=== PATIENT | male | born 1975 | race Caucasian/White ===

== ENCOUNTER 2021-05-29 00:21 | Emergency (ER) | payer BC, OTHER ==
[~2021-05-29] VITALS: Ht 172.7 cm; Wt 93.8 kg
[2021-05-29 00:34] VITALS: BP 156/99
--- NOTE | 2021-05-29 00:44 | ED EENT ---
History of Present Illness General Chief Complaint: Oral/Throat Problems Stated Complaint: VOMITTING;FEVER Source: patient History of Present Illness Date Seen by Provider: May 29, 2021 Time Seen by Provider: 00:38 Initial Comments 45 yo male presenting with complaint of sore throat, cough productive of green colored sputum since Thursday. He has pain with swallowing. He denies having a fever but has not taken his temperature. He has felt warm but again has not actually taken his temperature. He does chew tobacco but does not smoke. He has no known ill contacts. He was having enough pain with swallowing that he was concerned about possible strep throat as well as he continued to cough up yellow to green-colored sputum. He has some stuffy nose and nasal congestion. He did not feel that he had possible Covid. He was not wanting to be swabbed for viral infection. He was having trouble sleeping due to cough and throat pain. Timing/Duration: abrupt, last week Severity: moderate Location: throat Prearrival Treatment: no prearrival treatment Modifying Factors: Worse With Coughing Associated Symptoms: No change in hearing; cough; No drooling, No ear drainage, No facial pain/swelling; fever (subjective), malaise, nasal congestion/drainage; No poor fluid intake, No poor solids intake, No sinus infection; sore throat; No tooth pain, No voice change Allergies and Home Medications Allergies Coded Allergies: shellfish derived (Verified Allergy, Unknown, 05/29/21) Patient Home Medication List Home Medication List Reviewed: Yes Azithromycin (Azithromycin) 500 Mg Tablet, 500 MG PO DAILY Prescribed by: TIRSO CALLEJAS on 05/29/21102 Prednisone (Prednisone) 20 Mg Tab, 40 MG PO DAILY Prescribed by: TIRSO CALLEJAS on 05/29/21102 Review of Systems Review of Systems Constitutional: see HPI; No chills Eyes: Denies Blurred Vision, Denies Drainage, Denies Photophobia, Denies Vision Changes Ears: Denies Dizziness, Denies Pain, Denies Bloody Discharge, Denies Clear Discharge Nose: denies clots; congestion; denies epistaxis, denies bloody discharge; clear discharge Mouth: denies pain, denies swelling Throat: pain, swelling; denies discharge, denies neck stiffness; painful swallowing Respiratory: see HPI, cough, phlegm; No stridor, No wheezing Cardiovascular: No chest pain Gastrointestinal: no symptoms reported Musculoskeletal: no symptoms reported Skin: No rash Neurological: Denies Headache Past Sddkzst-Uixllf-Slefsn Hx Patient Social History Tobacco Use?: Yes (Chews smokeless tobacco) Smokeless Tobacco Frequency: Current Everyday User Substance use?: No Alcohol Use?: Yes Pt feels they are or have been: No Physical Exam Vital Signs Vital Signs - First Documented 05/29/21 00:34 Temp 36.6 Pulse 106 Resp 18 B/P (MAP) 156/99 (118) Pulse Ox 95 O2 Delivery Room Air Height, Weight, BMI Height: '" Weight: lbs. oz. kg; BMI Method: General Appearance: WD/WN, no apparent distress Eyes: bilateral eye PERRL, bilateral eye EOMI Nose: sinus tenderness (maxillary) Mouth/Throat: pharynx swelling, pharynx tenderness, tonsillar exudate Neck: non-tender, full range of motion, supple Cardiovascular: normal peripheral pulses, regular rate, rhythm Respiratory: chest non-tender, lungs clear, normal breath sounds, no respiratory distress, no accessory muscle use Neurologic/Psychiatric: alert, oriented x 3 Skin: normal color, warm/dry Progress/Results/Core Measures Results/Orders My Orders Orders - TIRSO CALLEJAS MD Azithromycin Tablet (Zithromax Tablet) (05/29/21 00:55) Prednisone Tablet (Deltasone Tablet) (05/29/21 00:55) Vital Signs/I&O 05/29/21 00:34 Temp 36.6 Pulse 106 Resp 18 B/P (MAP) 156/99 (118) Pulse Ox 95 O2 Delivery Room Air Progress Progress Note : Progress Note I advised the patient that we can swab his throat to check for strep but based on his symptoms I can also treat him for his cough and cold or congestion. The antibiotic to treat this would also treat for strep throat. When I advised the patient of this he decided that he would not want the swab of his throat since antibiotic would cover for both. He would like something to help with the throat pain and swelling. He also would like a note for work since he is supposed to work in the morning. Will start him on prednisone for throat swelling and pain as well as azithromycin to cover for atypical bacterial infection of the lungs as well as possible strep pharyngitis. Encourage fluids and rest. Follow-up through the clinic if having continued concerns Departure Impression Primary Impression: Pharyngitis Qualified Codes: J02.9 - Acute pharyngitis, unspecified Additional Impressions: Bronchitis Upper respiratory infection with cough and congestion Disposition: HOME, SELF-CARE Condition: Stable Departure-Patient Inst. Decision time for Depature: 00:57 Referrals: NO,LOCAL PHYSICIAN (PCP) Primary Care Physician [facility] [phone] call if you need to establish with a local provider for follow up Patient Instructions: Sore Throat, Adult ED, Upper Respiratory Infection ED, Cough, Adult ED Add. Discharge Instructions: Stay well hydrated and drink plenty of fluids Take the full course of antibiotics to treat for throat and lung infection. The steroid will help with pain in your throat as well as swelling and your cough and congestion. All discharge instructions reviewed with patient and/or family. Voiced understanding. Scripts Prednisone (Prednisone) 20 Mg Tab 40 MG PO DAILY for 5 Days, #10 TAB 0 Refills Prov: TIRSO CALLEJAS MD 05/29/21 Azithromycin (Azithromycin) 500 Mg Tablet 500 MG PO DAILY for 5 Days, #4 TAB 0 Refills 1st Dose given in ED, Next dose due at bedtime on 05/29 Prov: TIRSO CALLEJAS MD 05/29/21 Work/School Note: Work Release Form Date Seen in the Emergency Department: May 29, 2021 Return to Work: May 31, 2021 Restrictions: Return-No Fever (24hrs) TIRSO CALLEJAS MD May 29, 2021 00:44
[2021-05-29] MEDS ORDERED: AZITHROMYCIN 250 MG TAB (ZITHROMAX) PO STA (00:55)
[2021-05-29] MEDS ORDERED: predniSONE 20 MG TAB PO STA (00:55)
[2021-05-29] MEDS ORDERED: AZIT500T9 PO (01:03)
[2021-05-29] MEDS ORDERED: PRD20T PO (01:03)
== END 2021-05-29 01:13 | disposition home or self-care (01) ==
LOC: ER FS 00:24
DX: J02.9 Acute pharyngitis, unspecified (principal); J40 Bronchitis, not specified as acute or chronic; J06.9 Acute upper respiratory infection, unspecified; R09.81 Nasal congestion; F17.290 Nicotine dependence, other tobacco product, uncomplicated
CPT/HCPCS: 99283